=== PATIENT | female | born 1965 | race Two or more races ===

== ENCOUNTER → 2017-08-29 | Outpatient (CLI) | payer OTHER ==
[~2017-08-29] MED LIST: HYDR-3366 PO; LOSA50TA PO
== END ==
LOC: CPRE 11:35 → EDBD 11:35
PROVIDERS: ATTEND Neurological Surgery
DX: Z01.812 Encounter for preprocedural laboratory examination (principal); M51.16 Intervertebral disc disorders with radiculopathy, lumbar region
CPT/HCPCS: 87640; 87641

== ENCOUNTER → 2017-09-03 | Day surgery (SDC) | payer OTHER ==
[~2017-09-03] VITALS: Ht 157.5 cm; Wt 66.6 kg
[~2017-09-03] MED LIST changes: +ACETAMINOPHEN 1000 MG/100 ML 100 ML IV ONE; +ACETAMINOPHEN/HYDROcodone 325 MG/10 MG TAB PO PRN; +BUPIVACAINE/EPINEPHRINE 0.5% 50 ML VIAL ONE; +CHLORHEXIDINE GLUCONATE 2 % 1 PACK (2 CLOTHS) TOPICAL PRN; +DEXAMETHASONE SOD PHOS 4 MG/ML VIAL IV ONE; +DO NOT ADM ANY ANTICOAGULANT DRUGS PRN; +GELFOAM SIZE 100 ONE; +GLYCOPYRROLATE 1 MG/5 ML SYRINGE IV PUSH ONE; +LACTATED RINGER'S 1000 ML IV PRN; +LIDOCAINE HCL 1% PF 5 ML SYRINGE OTHER ONE; +METOPROLOL TARTRATE 25 MG TAB PO PRN; +MORPHINE SULFATE 4 MG/ML INJ IV PUSH PRN; +NEOSTIGMINE 5 MG/5 ML SYRINGE IV PUSH ONE; +ONDANSETRON HCL 4 MG/2 ML VIAL IV PUSH ONE; +PHENYLEPH/NS 1000 MCG/10 ML SYR IV ONE; +POVIDONE IODINE 5% (ANTISEPSIS KIT) 4 APPLICATIONS EACH NARE PRN; +PROPOFOL 200 MG/20 ML AMP IV ONE; +ROCURONIUM INJ 50 MG/5 ML SYRINGE IV PUSH ONE; +SODIUM CHLOR 0.9% 1000 ML INJ 1,000 ML IV SCH; +SODIUM CHLORID 0.9% 500 ML IV PRN; +THROMBIN (TOPICAL) 5,000 UNIT VIAL ONE; +VANCOMYCIN 1 GM/200 ML PREMIX ON-CALL IV SCH; +VANCOMYCIN HCL 1000 MG VIAL ONE; +ePHEDrine/NS 25 MG/5 ML SYRINGE IV ONE; +methylPREDNISolone ACETATE 40 MG/ML VIAL ONE
--- NOTE | 2017-09-03 12:02 | PD.OP ---
Operative Report Date of Surgery: Sep 03, 2017 Preoperative Diagnosis: Intractable low back pain with radiculopathy; L5-S1 disc herniation Postoperative Diagnosis: Same Procedure: Left L5-S1 hemilaminotomy with microdiscectomy; microsurgical technique Anesthesia: General endotracheal by Catie romero Surgeon: Pavan Serrano MD Television Inspector(s): Shira Chin Operation and Findings: Following administration of general endotracheal anesthesia, patient received vancomycin 1 g intravenously. Sequential compression devices were placed for DVT prophylaxis. She was then turned in prone position on Ousmane frame and the Raul table and all pressure points adequately padded. The lumbosacral region was then shaved and prepped with a Betadine and ChloraPrep. Sterile draping undertaken with Ioban. Midline incision overlying the L5-S1 level was then made after infiltrating the skin with 0.5% Marcaine with epinephrine solution. The skin incision was made extending down through the fascia and then using the subperiosteal plane on the left side the muscular attachments to the spinous process and lamina were detached. Intraoperative fluoroscopy was used for level confirmation and further dissection undertaken using microtechnique with microscope magnification. The inferior portion of the left L5 and superior portion of the S1 lamina was then drilled out and the underlying ligamentum flavum also removed. Epidural venous stasis achieved with the bipolar cautery along with Gelfoam and thrombin and bone wax used at the laminotomy edges for hemostasis. The thecal sac was then gently retracted and herniated disc fragment central eccentric left side at the L5-S1 level was identified. Disc fragment was removed with pituitaries and nerve pole in the spinal canal and foramen along the nerve roots were decompressed. Remnant annulus protrusion was cauterized and the area was then copiously irrigated with vancomycin solution. Depo-Medrol 40 mg was also injected in the epidural space. The retractors removed and the muscle fascia proximal using 2-0 Vicryl interrupted stitches. 3-0 Vicryl subcuticular stitches were also placed in an interrupted fashion and planned skin closure was with Mastisol and Steri- Strips. A sterile dressing was then applied and the patient then turned in the supine position and extubated and taken to recovery room in stable condition. There were no intraoperative complications and all sponge and needle count was correct at the end of the procedure. Estimated blood loss about 25 cc. Pavan Serrano MD Sep 03, 2017 12:02
[2017-09-03 13:20] VITALS: BP 125/77; PULSE 88; RESP 20; TEMP 96.8; O2SAT 94
--- NOTE | 2017-09-03 16:12 | RADRPT ---
EXAM DATE: 09/03/2017 4:09 PM EDT AGE/SEX: 52 years / Female INDICATIONS: Level localization L5,S1. CLINICAL DATA: This is the patient's initial encounter. Patient reports that signs and symptoms have been present for 1 day and indicates a pain score of Nonresponsive. MEDICAL/SURGICAL HISTORY: None. None. COMPARISON: No prior exams available for comparison. FINDINGS: Single lateral image obtained in the operating room during a procedure demonstrates instrument overly ing the posterior elements at L5-S1. CONCLUSION: Instrument overlies the posterior elements at L5-S1. Electronically signed by: Ramez Gordon MD 09/03/2017 4:11 PM EDT
== END | disposition home or self-care (01) ==
LOC: EDBD → HSDC 06:53 → EDUNIT# 10:00
PROVIDERS: ATTEND Neurological Surgery
DX: M51.16 Intervertebral disc disorders with radiculopathy, lumbar region (principal); I10 Essential (primary) hypertension
CPT/HCPCS: 00630; 63030; 72020; 76000; J0131; J1030; J1100; J2370; J2405; J2710; J3370; J7120